=== PATIENT | female | born 1960 | race Caucasian/White ===

== ENCOUNTER → 2017-11-19 | Outpatient (CLI) | payer OTHER ==
[2017-11-15 15:16] VITALS: BMI 20.9
[2017-11-19 14:23] VITALS: BP 131/78; PULSE 75; RESP 16
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
== END ==
LOC: PNWHC3 13:41
PROVIDERS: ATTEND Anesthesiology
DX: G89.29 Other chronic pain (principal); M54.81 Occipital neuralgia; M48.02 Spinal stenosis, cervical region; K21.9 Gastro-esophageal reflux disease without esophagitis; J44.9 Chronic obstructive pulmonary disease, unspecified; F17.200 Nicotine dependence, unspecified, uncomplicated; Z88.0 Allergy status to penicillin; Z88.2 Allergy status to sulfonamides; Z79.899 Other long term (current) drug therapy; Z79.891 Long term (current) use of opiate analgesic
CPT/HCPCS: 99211

== ENCOUNTER → 2017-12-11 | Day surgery (SDC) | payer OTHER | LOC: ORPAIN 09:45 | PROVIDERS: ATTEND Anesthesiology | DX: M54.5 Low back pain (principal) ==